=== PATIENT | female | born 1975 | race African-American/Black ===

== ENCOUNTER 2016-06-13 18:11 | Emergency (ER) | payer OTHER ==
[2016-06-13] MEDS ORDERED: NEB-ALBUTEROL 2.5 MG/3 ML INH ONE (19:10)
[2016-06-13] MEDS ORDERED: DUONEB INH ONE (19:10)
== END 2016-06-13 19:48 | disposition home or self-care (01) ==
LOC: ER 18:11
DX: J45.41 Moderate persistent asthma with (acute) exacerbation (principal); J15.9 Unspecified bacterial pneumonia; I10 Essential (primary) hypertension; Z79.51 Long term (current) use of inhaled steroids; Z79.2 Long term (current) use of antibiotics
CPT/HCPCS: 71020; 94640